=== PATIENT | male | born 1955 | race Caucasian/White ===

== ENCOUNTER 2018-08-14 08:52 | Emergency (ER) | payer OTHER | END 2018-08-14 10:41 | disposition home or self-care (01) | LOC: FTE 08:52 | DX: B02.9 Zoster without complications (principal) | CPT/HCPCS: 99283; Z7502 ==

== ENCOUNTER 2018-10-15 12:00 | Emergency (ER) | payer OTHER ==
[2018-10-15] MEDS: LIDOCAINE 1% (MPF) 5 ML VIAL INJ (13:38)
== END 2018-10-15 14:08 | disposition home or self-care (01) ==
LOC: FTE 12:00
DX: L02.412 Cutaneous abscess of left axilla (principal); F17.210 Nicotine dependence, cigarettes, uncomplicated
CPT/HCPCS: 10060; 99283-25

== ENCOUNTER 2018-10-17 08:00 | Emergency (ER) | payer OTHER | END 2018-10-17 08:46 | disposition home or self-care (01) | LOC: FTE 08:00 | DX: Z48.01 Encounter for change or removal of surgical wound dressing (principal); R40.2412 Glasgow coma scale score 13-15, at arrival to emergency department; F17.210 Nicotine dependence, cigarettes, uncomplicated | CPT/HCPCS: 99281; Z7502 ==